=== PATIENT | female | born 1980 | race Caucasian/White ===

== ENCOUNTER 2024-03-21 11:50 | Emergency (ER) | payer MEDICAID, SELFPAY ==
[2024-03-21 11:51] VITALS: BMI 27.3
[2024-03-21 12:02] VITALS: BP 158/96; PULSE 98; RESP 16; TEMP 37.4; O2SAT 97
--- NOTE | 2024-03-21 12:12 | XR_ITS ---
Examination: Duplex scan of the upper extremity, unilateral left complete Date and time of exam: March 21, 2024 1230 hours INDICATIONS: Left lower arm pain and swelling and redness beginning 3 days ago, history DVT left arm years ago Technique: Duplex scan of the extremity veins using B-mode/grayscale imaging and Doppler spectral positive for occlusive thrombus in the left basilic vein Jugular subclavian axillary cephalic brachial radial ulnar veins are open IMPRESSION: Positive for occlusive acute DVT left basilic vein
--- NOTE | 2024-03-21 12:18 | PD.EDRME ---
Rapid Medical Screening Exam RME Arrival date/time: 03/21/24 11:50 43-year-old female presents the emergency department complaints of left upper extremity swelling and erythema patient reports history of blood clots patient reports that she has factor V Leiden Chief Complaint: Extremity Problem,Nontraumatic Time Seen by Provider: 03/21/24 12:06 Vital signs: Vital Signs Temperature 99.3 F 03/21/24 12:02 Pulse Rate 98 03/21/24 12:02 Respiratory Rate 16 03/21/24 12:02 Blood Pressure 158/96 H 03/21/24 12:02 Pulse Oximetry (%) 97 03/21/24 12:02 Oxygen Delivery Method Room Air 03/21/24 12:02
--- NOTE | 2024-03-21 12:26 | PD.EDRME ---
Rapid Medical Screening Exam RME Arrival date/time: 03/21/24 11:50 03/21/24 11:50 43-year-old female presents the emergency department complaints of left upper extremity swelling and erythema patient reports history of blood clots patient reports that she has factor V Leiden Chief Complaint: Extremity Problem,Nontraumatic Time Seen by Provider: 03/21/24 12:06 Vital signs: Vital Signs Temperature 99.3 F 03/21/24 12:02 Pulse Rate 98 03/21/24 12:02 Respiratory Rate 16 03/21/24 12:02 Blood Pressure 158/96 H 03/21/24 12:02 Pulse Oximetry (%) 97 03/21/24 12:02 Oxygen Delivery Method Room Air 03/21/24 12:02 RME Narrative: 03/21/24 11:50 43-year-old female presents the emergency department complaints of left upper extremity swelling and erythema patient reports history of blood clots patient reports that she has factor V Leiden
--- NOTE | 2024-03-21 13:11 | EDNOTE_ITS ---
ED General RME/HPI General Chief complaint: Extremity Problem,Nontraumatic Stated complaint: PAIN/SWELLING/REDNESS TO LEFT ARE x 4 DAYS Time Seen by Provider: 03/21/24 12:06 Arrival date/time: 03/21/24 11:50 CC: Redness mild swelling and tenderness to the back of the left forearm and the left elbow, I have DVTs . HPI ongoing for the past 4 days, with no spontaneous resolution, admits to a fall approximately 1 week ago. Patient denies shortness of breath difficulty breathing. Patient has a significant history of DVTs including 1 on the left arm 1 year ago. Patient has a history of diabetes factor V Leiden, and continues to smoke approximately 1 pack a day of cigarettes. Psychiatric medications are her primary medication at home. Patient states the only thing that works on the DVTs is Lovenox. Patient is awake alert and oriented not in any acute distress. Patient states she has allergic reaction to Eliquis, and Coumadin does not work . Last episode 1 year ago was treated in the [facility] Related Data Previous Rx's ?Medication ?Instructions ?Recorded enoxaparin 80 mg/0.8 mL 80 mg (0.8 mL) subcut Q24H #8 mL 03/21/24 subcutaneous syringe (Lovenox) Allergies Allergy/AdvReac Type Severity Reaction Status Date / Time fluoxetine [From Prozac] Allergy Severe BRAIN Verified 03/21/24 11:54 SELLING, SIEZURE rasburicase [From Elitek] Allergy Severe Hives Verified 03/21/24 11:54 Review of Systems Review of Systems Narrative Review of Systems: GEN: No fever, no chills, no weight loss EYES: No discharge, no visual changes, no pain HEENT: No ear pain, no congestion, no sore throat PULM: No shortness of breath, no cough, no congestion CV: No chest pain, no dyspnea on exertion, no palpitations GI: No nausea, no vomiting, no diarrhea, no pain, no constipation : No frequency, no urgency, no dysuria MUSC/SKEL: No joint pain, no back pain, + left arm pain SKIN: No rash PSYCH: No hallucinations, no depression HEME/LYMPH: No easy bleeding or bruising tendencies NEURO: No weakness, no headache Past Medical History Past Medical History CARDIAC: Negative Cardiac Disorders, Congestive Heart Failure or Hypertension RESPIRATORY: Negative Chronic Obstructive Pulmonary Disease (COPD) or Asthma GENITOURINARY: Negative Renal Disease MUSCULOSKELETAL: Positive Fibromyalgia ENDOCRINE: Positive Diabetes Mellitus Type 2 and Systemic Lupus Erythematosus; Negative Diabetes Mellitus Type 1 HEMATOLOGIC: Positive Blood Disorders (Factor V Leiden) and Clotting Problems; Negative Sickle Cell Disease PSYCHO/SOCIAL: Positive Psychiatric Problems, Schizophrenia, Depression and Anxiety OTHER HISTORY: Positive Hospitalization and Autoimmune Disease (Lupus) Family History FAMILY HISTORY: Negative Family Psychiatric Problems, Family Respiratory Disorders, Family Cardiac Disorders, Family Gastrointestinal Problems, Family Cancer, Family Surgery or Family Anesthesia Reaction Surgical History SURGICAL: Positive Hysterectomy (PARTIAL HYSTORECTOMY); Negative Cardiac Surgery Social History SMOKING STATUS: Heavy (> 1 pack/day) ED Exam Narrative Physical exam: [General: Not in any acute distress Head normocephalic HEENT: Within acceptable limits Neck is supple nontender Chest equal chest rise nontender to palpation Respiratory: Clear to auscultation no wheezes crackles or rubs CV: Rate rhythm is regular no murmurs rubs or clicks Abdomen is soft nontender no masses positive bowel sounds all 4 quadrants Back: No CVA tenderness no spinous process tenderness from cervical spine thoracic and lumbar spine Skin: Erythematous streaking to the medial aspect of the olecranon, and the dorsum of the forearm and the lateral aspect of the wrist. These are intermittent with mild surrounding erythema not warm to touch, raised and lineal in nature in the center of each erythematous region. Otherwise skin is intact no petechiae rash induration ulceration or crepitus Extremities: Moving all extremity against resistance cap refill less than 2 seconds neurosensory intact Neuro: Awake alert oriented x3 Glascow coma 15 no focal deficits] Course Quality Measures none Orders Category Date Time Status US venous doppler UE LT Stat Exams 03/21/24 12:12 Completed CBC Stat Lab 03/21/24 13:21 Completed Comprehensive Metabolic Panel Stat Lab 03/21/24 13:21 Completed Partial Thromboplastin Time Stat Lab 03/21/24 13:21 Completed Prothrombin Time with INR Stat Lab 03/21/24 13:21 Completed Enoxaparin [Lovenox] Med 03/21/24 13:20 Discontinued 80 mg SC X1 ONE Vital Signs Vital signs: Vital Signs Temperature 99.3 F 03/21/24 12:02 Pulse Rate 98 03/21/24 12:02 Respiratory Rate 16 03/21/24 12:02 Blood Pressure 158/96 H 03/21/24 12:02 Pulse Oximetry (%) 97 03/21/24 12:02 Oxygen Delivery Method Room Air 03/21/24 12:02 [facility] Patient data External records reviewed:: [facility] previous records Clinical information provided by:: patient Social determinants that could affect healthcare access:: none Patient has the following chronic illnesses:: Factor V Leiden diabetes smoker How is presenting disease/condition affected by chronic disease/condition?: e xacerbated by Evaluation data The following diagnostics were reviewed and interpreted by me:: lab results and radiology exam(s) Lab and/or radiology exams considered but not ordered:: CBC shows no acute leukocytosis anemia thrombocytopenia CMP shows no acute electrolyte imbalances renal impairment transaminitis or T. bili elevation Ultrasound as interpreted me shows a basilic vein occlusion. Interpretation Summary: Basilic vein DVT Medications Medications considered but not ordered:: None Medication administrations:: Medication Administration History Discontinued Medications Enoxaparin Sodium (Enoxaparin Sod Inj 80 Mg/0.8 Ml Syringe) 80 mg SC X1 ONE Stop: 03/21/24 13:21 Last Admin: 03/21/24 13:31 Dose: 80 mg Documented By: BOAZ None Consultations Consultation(s) initiated? (list below): No Diagnosis Differential Diagnosis ED Complaint MDM: DVT cellulitis arm abscess Most likely diagnosis given after review of the tests above:: Left arm DVT Admission Indicated Admission indicated?: not indicated Explain why admission is indicated or not indicated:: Stable for close outpatient follow-up Admission Request Was there a request for admission?: No Disposition Plan Disposition Plan: Discharge Discharge Attestation Discharge Attestation: The patient and all family members were given an opportunity to ask questions and understood the discharge instructions. Discharge instructions specifically effects, indications for sooner follow up or return to the emergency department, and the expected course of current diagnosis. Patient condition: Stable Medical Decision Making Differential Diagnosis Differential Diagnosis: DVT cellulitis arm abscess Lab Data 03/21/24 13:21 03/21/24 13:21 Labs: Lab Results 03/21/24 Range/Units 13:21 WBC 9.1 (3.6-11.0) Thou/mm3 RBC 5.21 H (4.00-5.20) Miln/mm3 Hgb 15.0 (12.0-16.0) g/dL Hct 44.3 (36.0-46.0) % MCV 85 (80-100) fL MCH 28.8 (25.0-35.0) pg MCHC 33.9 (31.0-37.0) g/dl RDW Std Deviation 42.5 (36.4-46.3) fL Plt Count 230 (140-440) Thou/mm3 Neut % (Auto) 70 (37-80) % Lymph % (Auto) 19 (10-50) % Chaves % (Auto) 7 (0-12) % Eos % (Auto) 3 (0-10) % Baso % (Auto) 1 (0-2.5) % Neut # (Auto) 6.4 (1.8-7.7) Thou/mm3 Lymph # (Auto) 1.7 (1.0-4.8) Thou/mm3 Chaves # (Auto) 0.7 (0.0-0.8) Thou/mm3 Eos # (Auto) 0.2 (0.0-0.5) Thou/mm3 Baso # (Auto) 0.1 (0.0-0.2) Thou/mm3 Immature Gran # (Auto) 0.04 H (0.00-0.00) Thou/mm3 Absolute Nucleated RBC 0.00 (0.00-0.00) Thou/mm3 Immature Gran % 0 (0-0) % Nucleated RBC % 0 (0) /100 WBC PT 10.9 (9.0-12.2) Seconds INR 1.0 (0.9-1.3) APTT 26.6 (22.0-36.0) Seconds Sodium 134 L (136-145) mMol/L Potassium 4.2 (3.4-5.1) mMol/L Chloride 104 (98-107) mMol/L Carbon Dioxide 23.6 (20.0-31.0) mMol/L Anion Gap 6 L (7-16) BUN 9 (9-23) mg/dL Creatinine 0.8 (0.6-1.3) mg/dL Estim Creat Clear Calc 96.3 (>60) mL/min eGFR > 60 (60 - ) See Note BUN/Creatinine Ratio 11 L (12-20) Ratio Glucose 142 H (74-106) mg/dL Calculated Osmolality 268 L (275-295) Calcium 9.8 (8.3-10.6) mg/dL Corrected Calcium 9.8 (8.5-10.1) mg/dL Total Bilirubin 0.7 (0.3-1.2) mg/dL AST 16 (0-34) U/L ALT 14 (10-49) U/L Alkaline Phosphatase 72 (46-116) U/L Total Protein 7.6 (5.7-8.2) gm/dL Albumin 5.0 (3.5-5.0) gm/dL Globulin 2.6 (2.3-3.5) gm/dL Albumin/Globulin Ratio 1.9 (1.2-2.2) Discharge Plan Plan Patient Disposition: HOME (Self Care) Patient condition on transfer: Stable Prescriptions/Referrals Prescriptions/Med Rec: New enoxaparin [Lovenox] 80 mg/0.8 mL syringe 80 mg subcut Q24H Qty: 8 1RF Referrals: Sydney Young FNP [Primary Care Provider] - In 1 week Problem List Clinical Impression: Deep venous thrombosis of upper extremity Patient/Caregiver Discharge Instructions Education Materials: DVT Dc Additional Instructions: As you requested Lovenox was prescribed, follow-up with your PCP for refills if there is a worsening of symptoms return immediately to the emergency room for reevaluation. Print Language: Israeli Stand Alone Forms: Lucie Award Info., Work/School Release, Patient Portal Info Letter MARKUS/JANAE Supervising Physician MARKUS/JANAE Supervising Physician: Vani Ceja ENP
[2024-03-21] MEDS: ENOXAPARIN SOD INJ 80 MG/0.8 ML SYRINGE SC (13:31)
[2024-03-21 13:38] LABS: Basophils # (Auto) 0.1 Thou/mm3 (0.0-0.2); Basophils % (Auto) 1 % (0-2.5); Eosinophils # (Auto) 0.2 Thou/mm3 (0.0-0.5); Eosinophils % (Auto) 3 % (0-10); Hematocrit 44.3 % (36.0-46.0); Immature Granulocytes % (Auto) 0 % (0-0); Immature Granulocytes Auto 0.04 Thou/mm3 (0.00-0.00); Lymphocytes # (Auto) 1.7 Thou/mm3 (1.0-4.8); Lymphocytes % (Auto) 19 % (10-50); Mean Corpuscular HGB Conc 33.9 g/dl (31.0-37.0); Mean Corpuscular Hemoglobin 28.8 pg (25.0-35.0); Mean Corpuscular Volume 85 fL (80-100); Monocytes # (Auto) 0.7 Thou/mm3 (0.0-0.8); Monocytes % (Auto) 7 % (0-12); Neutrophils # (Auto) 6.4 Thou/mm3 (1.8-7.7); Neutrophils % (Auto) 70 % (37-80); Nucleated Red Blood Cell % 0 /100 WBC (0); Platelet Count 230 Thou/mm3 (140-440); RDW Standard Deviation 42.5 fL (36.4-46.3); Red Blood Count 5.21 Miln/mm3 (4.00-5.20); White Blood Count 9.1 Thou/mm3 (3.6-11.0)
[2024-03-21 13:50] LABS: Partial Thromboplastin Time 26.6 Seconds (22.0-36.0); Prothrombin Time 10.9 Seconds (9.0-12.2)
[2024-03-21 13:52] LABS: Alanine Aminotransferase 14 U/L (10-49); Albumin/Globulin Ratio 1.9 (1.2-2.2); Alkaline Phosphatase 72 U/L (46-116); Anion Gap 6 (7-16); Aspartate Amino Transferase 16 U/L (0-34); BUN/Creatinine Ratio 11 Ratio (12-20); Bilirubin,Total 0.7 mg/dL (0.3-1.2); Blood Urea Nitrogen 9 mg/dL (9-23); Calcium 9.8 mg/dL (8.3-10.6); Calcium (Corrected) 9.8 mg/dL (8.5-10.1); Carbon Dioxide 23.6 mMol/L (20.0-31.0); Chloride 104 mMol/L (98-107); Creatinine (Component) 0.8 mg/dL (0.6-1.3); Estimated Creatinine Clearance 96.3 mL/min (>60); Globulin 2.6 gm/dL (2.3-3.5); Glucose 142 mg/dL (74-106); Osmolality,Calculated 268 (275-295); Potassium 4.2 mMol/L (3.4-5.1); Sodium 134 mMol/L (136-145); Total Protein 7.6 gm/dL (5.7-8.2); eGFR > 60 See Note
--- NOTE | 2024-03-21 13:53 | PC.NURSE ---
Pt to the nurse's station asking if she can leave because her ride is here. Pt states she got her med but no one has told her anything. She will have no other ride if she does not leave now. Provider Marcial speaking with pt attempting to convince her to stay pt says she has to leave.
--- NOTE | 2024-03-21 14:02 | PC.NURSE ---
Pt blood tests all resulted and pt was successfully discharged.
== END 2024-03-21 14:02 | disposition home or self-care (01) ==
PROVIDERS: Nurse Practitioner Primary Care; Emergency Provider Emergency Medicine; PCP Nurse Practitioner
DX: I82.622 Acute embolism and thrombosis of deep veins of left upper extremity (principal); D68.51 Activated protein C resistance; F17.210 Nicotine dependence, cigarettes, uncomplicated
CPT/HCPCS: 36415; 80053; 85025; 85610; 85730; 93971; 96372; 99284; J1650